=== PATIENT | male | born 1995 | race Caucasian/White ===

== ENCOUNTER 2022-05-22 19:43 | Emergency (ER) | payer OTHER, SELFPAY ==
[2022-05-22 19:44] VITALS: BP 140/93; PULSE 125; RESP 18; TEMP 36.6; O2SAT 97; BMI 30.5
[2022-05-22 20:03] LABS: Bacteria 0 SEEN /hpf (None Seen); Mucous, Urine 0 SEEN /hpf (<or=2+); Red Blood Cells-Urine 0 SEEN /hpf (0-5); Squamous Epithelial Cells - UA 0 SEEN /hpf (0-5); White Blood Cells 0 SEEN /hpf (0-5)
[2022-05-22 20:05] LABS: Color, Urine Yellow (Yellow); Glucose, Dipstick Normal (Normal); Ketone-Dipstick Negative (Negative); Leukocyte Esterase-Dipstick Negative /ul (Negative); Nitrite-Dipstick Negative (Negative); Occult Blood-Urine Negative /ul (Negative); Protein-Dipstick Negative (Negative); Urine Bilirubin Dipstick Negative (Negative); Urine Clarity Clear (Clear); Urine Urobilinogen Normal (Normal)
[2022-05-22 20:15] LABS: Transitional Epithelial - Ur 0-5 SEEN /hpf (0-5)
[2022-05-22 20:34] LABS: Absolute Lymphocyte Count 2.94 X10^3/uL (0.83-4.51); Absolute Neutrophil Count 6.5 X10^3/uL (2.0-7.7); Basophil# 0.05 X10^3/uL; Basophil% 0.5 % (0-1); Eosinophil# 0.15 X10^3/uL; Eosinophils% 1.4 % (0-5); Hematocrit 44.7 % (40-54); Lymphocyte # 2.94 X10^3/ul (0.83-4.51); Lymphocyte % 27.2 % (19-41); Mean Corp Hgb Conc 33.6 g/dL (32-36); Mean Corpuscular Hgb 29.1 pg (27.0-32.0); Mean Corpuscular Volume 86.8 fL (80-94); Mean Platelet Vol. 9.3 fl (6.2-12.0); Monocyte# 1.13 X10^3/uL; Monocyte% 10.5 % (0-10); NRBC Flagged by Analyzer 0 % (0-5); Neutrophil # 6.45 X10^3/uL (2.7-7.7); Neutrophil % 59.8 % (47-70); Platelet Count 331 K/mm3 (150-450); RBC Distribution Width CV 12.2 % (11.6-14.6); RBC Distribution Width SD 38.8 fl (35.1-43.9); Red Blood Count 5.15 M/mm3 (4.6-6.2); White Blood Count 10.8 K/mm3 (4.4-11.0)
--- NOTE | 2022-05-22 20:41 | EDS_ITS ---
HPI HPI - GI History of Present Illness Chief Complaint: Abd Pain Narrative Narrative: 26-year-old male presenting with right lower quadrant pain. He states has had this since yesterday. He states is a dull ache most of the time with intermittent episodes of more sharp pain. He had a couple episodes of diarrhea. No urinary complaints. No flank pain. No fever, chills, nausea, vomiting. Patient feels generally well. He was seen in urgent care and sent to the emergency room to rule out appendicitis. PFSH PFSH Allergy/AdvReac Type Severity Reaction Status Date / Time No Known Allergies Allergy Verified 05/22/22 19:46 Surgical History History of repair of ACL Social History Smoking Status: Never smoker ROS ROS ED Constitutional Constitutional ED: Denies chills or fever(s) ENT ENT ED: Denies rhinorrhea or sore throat Cardiovascular Cardiovascular: Denies chest pain or palpitations Respiratory/Chest Respiratory/Chest: Denies cough or dyspnea Gastrointestinal Gastrointestinal: Reports abdominal pain and diarrhea; Denies nausea or vomiting Genitourinary Genitourinary ED: Denies dysuria or hematuria Musculoskeletal Musculoskeletal: Denies arthralgias or back pain Integumentary Denies abscess Neurologic Neurologic: Denies headache(s) Psychiatric Psychiatric: Denies anxiety or depression Endocrine Endocrinology: Denies polydipsia or polyphagia EXAM Physical Exam Const Vital Signs: 05/22/22 19:44 Temperature 97.8 F Temperature Source Temporal Pulse Rate 125 H Respiratory Rate 18 Blood Pressure 140/93 H Blood Pressure Mean 108 Pulse Ox 97 Oxygen Delivery Method Room Air Positive well nourished General Appearance ED: NAD; Negative for pallor HEENT Reports TM's clear and moist mucous membranes Tympanic Membrane ED: Yes TM's clear Eyes PERRL and EOMs intact bilaterally Resp normal respiratory effort and clear to auscultation bilaterally Cardio regular rate and regular rhythm GI Palpation: tender RLQ Back/Spine no CVA tenderness Neuro CN's II-XII intact bilaterally Sensorium / Orientation: alert, oriented to person, oriented to place and oriented to time Motor Exam: strength 5/5 throughout Psych mental status grossly normal Skin no wounds General Skin Exam: Negative for jaundice or pallor MDM MDM MDM Narrative Medical decision making narrative: Pain with abdominal pain. He states been there since yesterday. He states its at baseline low-grade aching. Does state that at times it is worse. He does not any flank pain. No dysuria, hematuria. He declines analgesia in the ER. Blood work was obtained and his CBC and BMP are normal. Urinalysis negative for infection or occult blood. Patient still states he does not anything for pain or nausea. At this point with negative blood work I have a low clinical suspicion for appendicitis. I discussed with him that if he did develop appendicitis that it would present itself. Recommended to him if he has increased pain, nausea, vomiting or develops a fever he should return to the ER. He had nausea standing this. He is given referral for primary care follow-up. Impression: 1. Abdominal pain 2. Diarrhea Lab Data Labs: Laboratory Results - last 24 hr 05/22/22 05/22/22 05/22/22 19:53 20:25 20:25 WBC 10.8 RBC 5.15 Hgb 15.0 Hct 44.7 MCV 86.8 MCH 29.1 MCHC 33.6 RDW Std Deviation 38.8 RDW Coeff of Alanis 12.2 Plt Count 331 MPV 9.3 Immature Gran % (Auto) 0.600 Neut % (Auto) 59.8 Lymph % (Auto) 27.2 [place] % (Auto) 10.5 H Eos % (Auto) 1.4 Baso % (Auto) 0.5 Absolute Neuts (auto) 6.5 Absolute Lymphs (auto) 2.94 Nucleated RBC % 0 Sodium 140 Potassium 3.6 Chloride 105 Carbon Dioxide 28.0 Anion Gap 7 BUN 14 Creatinine 1.12 Estim Creat Clear Calc 93.44 Est GFR (MDRD) Af Amer 101 Est GFR (MDRD) Non-Af 84 BUN/Creatinine Ratio 12.5 Glucose 96 Calcium 9.3 Urine Color Yellow Urine Clarity Clear Urine pH 6.0 Ur Specific [place] 1.020 Urine Protein Negative Urine Glucose (UA) Normal Urine Ketones Negative Urine Occult Blood Negative Urine Nitrite Negative Urine Bilirubin Negative Urine Urobilinogen Normal Ur Leukocyte Esterase Negative Urine RBC 0 SEEN Urine WBC 0 SEEN Ur Squamous Epith Cells 0 SEEN Ur Transition Epith Cell 0-5 SEEN Urine Bacteria 0 SEEN Urine Mucus 0 SEEN Discharge Plan Triage Chief Complaint: Abd Pain ED Provider: Flash Tse Dx/Rx/DC Orders Instructions: ED Abdominal Pain Unkn Cause Male... Primary Care Provider: Care Physician,No Primary Referrals: Fast,Xenia, DO [Med Staff - Electronic Calibration Technician] - 3-5 Days NOT,DEFINED [NON-STAFF] - Disposition Disposition: Home, Self Care
[2022-05-22] MEDS: 0.9% Normal Saline 1,000 ML 1000 ML IV (20:43)
[2022-05-22 20:45] LABS: Anion Gap 7 (5-15); BUN 14 mg/dL (7-18); BUN/Creat Ratio 12.5 RATIO (10-20); Calcium,Total 9.3 mg/dL (8.5-10.1); Chloride 105 mmol/L (98-107); Creatinine, Serum 1.12 mg/dL (0.70-1.30); EST Glomerular Filtration Rate 84 mL/min (>60); Est Glom Filt Rate - Afr Amer 101 mL/min (>60); Estimated Creatinine Clearance 93.44 ml/min; Glucose 96 mg/dL (74-106); Potassium 3.6 mmol/L (3.5-5.1); Sodium Level 140 mmol/L (136-145)
[2022-05-22 21:38] VITALS: BP 140/88; PULSE 84; RESP 18; O2SAT 98
== END 2022-05-22 21:38 | disposition home or self-care (01) ==
PROVIDERS: Emergency Provider Student in an Organized Health Care Education/Training Program; Visit Provider Student in an Organized Health Care Education/Training Program
DX: R10.31 Right lower quadrant pain (principal); R19.7 Diarrhea, unspecified
CPT/HCPCS: 80048; 81001; 85025; 96360; 99283; J7030; A4216